=== PATIENT | female | born 1975 | race Caucasian/White ===

== ENCOUNTER 2021-08-01 06:48 | Day surgery (SDC) | payer OTHER ==
[~2021-08-01] VITALS: Ht 160 cm; Wt 93.9 kg
[2021-08-01] MEDS ORDERED: fentaNYL citrate 0.05 MG/ML VIAL ONE (08:02)
[2021-08-01] MEDS ORDERED: MIDAZOLAM 5 MG/5 ML VIAL ONE (08:02)
[2021-08-01] MEDS ORDERED: LIDOCAINE 2% 100 MG/5 ML UJET TP ONE (08:02)
[2021-08-01] MEDS ORDERED: fentaNYL citrate 0.05 MG/ML VIAL IVP ONE (08:45)
[2021-08-01] MEDS ORDERED: MIDAZOLAM 2 MG/2 ML VIAL IVP ONE (08:45)
== END 2021-08-01 09:20 | disposition home or self-care (01) ==
LOC: MDS 06:48 → MMU 06:48 → MDS 09:20
PROVIDERS: ATTEND Surgery
DX: K62.5 Hemorrhage of anus and rectum (principal); D12.2 Benign neoplasm of ascending colon; E03.9 Hypothyroidism, unspecified; Z90.710 Acquired absence of both cervix and uterus; Z79.899 Other long term (current) drug therapy; Z20.822 Contact with and (suspected) exposure to COVID-19
CPT/HCPCS: 45385; 87426; 88305; J2250; J3010